=== PATIENT | female | born 1940 | race Two or more races ===

== ENCOUNTER 2017-10-27 15:32 | Emergency (ER) | payer SELFPAY ==
[~2017-10-27] VITALS: Ht 160 cm; Wt 52.8 kg
[2017-10-27 17:40] LABS: Basophils # (auto) 0 uL; Basophils % (auto) 0.3 % (0.0-2.0); Eosinophils # (auto) 0.1 uL; Eosinophils % (auto) 1.6 % (0.0-7.0); Hematocrit 45.1 % (36.0-46.0); Hemoglobin 15.2 g/dL (12.2-16.2); Lymphocytes # (auto) 1.9 uL; Lymphocytes % (auto) 25.4 % (10.0-50.0); Mean Corpuscular Hemoglobin 30.2 pg (28.0-32.0); Mean Corpuscular Hgb Conc. 33.6 g/dL (32.0-36.0); Mean Corpuscular Volume 89.7 fL (80.0-100.0); Monocytes # (auto) 0.5 uL; Neutrophils # (auto) 5.1 uL; Neutrophils % (auto) 66.7 % (37.0-80.0); Platelet Count (auto) 307 10^3/uL (140-450); Red Blood Cells 5.03 10^6/uL (4.0-5.20); Red Cell Distribution Width 14.4 % (11.8-14.3); White Blood Cell 7.6 10^3/uL (4.4-10.8)
[2017-10-27 17:53] LABS: Alcohol, Urine < 3.0 mg/dL (0-5); Amphetamine Screen, Urine NEGATIVE (NEGATIVE); Barbiturate Scree,Urine NEGATIVE (NEGATIVE); Benzodiazephine Screen, Urine POSITIVE (NEGATIVE); Cannabinoid Screen, Urine NEGATIVE (NEGATIVE); Cocaine Screen, Urine NEGATIVE (NEGATIVE); Opiate Scree,Urine NEGATIVE (NEGATIVE); Phencyclidine Screen, Urine NEGATIVE (NEGATIVE)
[2017-10-27 17:54] LABS: Anion Gap 10 (5-15); BUN/Creatinine Ratio 13.6; Blood Alcohol < 3.0 mg/dL (0-5); Blood Urea Nitrogen 12 mg/dL (7-18); Calcium 9.4 mg/dL (8.5-10.1); Carbon Dioxide 27 mmol/L (21-32); Chloride 104 mmol/L (98-107); GFR African American 80 mL/min; GFR Non-African American 66 mL/min; Glucose 158 mg/dL (74-106); Potassium 3.7 mmol/L (3.5-5.1); Sodium 141 mmol/L (136-145)
[2017-10-27 18:10] VITALS: BP 120/68
== END 2017-10-27 18:18 | disposition home or self-care (01) ==
LOC: ER 15:32
DX: F32.9 Major depressive disorder, single episode, unspecified (principal); E78.5 Hyperlipidemia, unspecified; I10 Essential (primary) hypertension; F17.210 Nicotine dependence, cigarettes, uncomplicated; Z90.710 Acquired absence of both cervix and uterus
CPT/HCPCS: 36415; 80048; 80307; 80320; 85025

== ENCOUNTER 2018-06-12 06:05 | Day surgery (SDC) | payer SELFPAY ==
[~2018-06-12] VITALS: Ht 162.6 cm; Wt 68.0 kg
[2018-06-12] MEDS ORDERED: SODIUM CHLORIDE 0.9% 1,000 ML IV ONE (07:37)
[2018-06-12 08:09] LABS: Basophils # (auto) 0 uL; Basophils % (auto) 0.4 % (0.0-2.0); Eosinophils # (auto) 0.2 uL; Eosinophils % (auto) 2.5 % (0.0-7.0); Hematocrit 43.2 % (36.0-46.0); Hemoglobin 14.2 g/dL (12.2-16.2); Lymphocytes # (auto) 2.2 uL; Lymphocytes % (auto) 23.2 % (10.0-50.0); Mean Corpuscular Hemoglobin 28.6 pg (28.0-32.0); Mean Corpuscular Hgb Conc. 32.8 g/dL (32.0-36.0); Mean Corpuscular Volume 87.1 fL (80.0-100.0); Monocytes # (auto) 0.5 uL; Monocytes % (auto) 5.9 % (0.0-12.0); Neutrophils # (auto) 6.3 uL; Nucleated Red Blood Cells % 0.1 %; Platelet Count (auto) 357 10^3/uL (140-450); Red Blood Cells 4.96 10^6/uL (4.0-5.20); Red Cell Distribution Width 14.7 % (11.8-14.3); White Blood Cell 9.3 10^3/uL (4.4-10.8)
[2018-06-12 08:26] LABS: INR 0.92 (0.9-1.15); Partial Thromboplastin Time 28.5 sec (23.78-33.04); Prothrombin Time 9.9 sec (9.27-12.13)
[2018-06-12 08:31] LABS: Albumin 4.1 g/dL (3.4-5.0); Anion Gap 6 (5-15); Blood Urea Nitrogen 13 mg/dL (7-18); Calcium 9.5 mg/dL (8.5-10.1); Carbon Dioxide 29 mmol/L (21-32); Chloride 106 mmol/L (98-107); Glucose 91 mg/dL (74-106); Potassium 3.9 mmol/L (3.5-5.1); Sodium 141 mmol/L (136-145)
[2018-06-12 08:33] LABS: Alanine Aminotransferase 18 U/L (13-56); Aspartate Aminotransferase 21 U/L (15-37); BUN/Creatinine Ratio 15.3; GFR African American 83 mL/min; GFR Non-African American 69 mL/min
[2018-06-12 08:38] LABS: Alkaline Phosphatase 98 U/L (45-117); Bilirubin, Total 0.3 mg/dL (0.2-1.0)
[2018-06-12] MEDS ORDERED: MEPERIDINE HCL (25 MG/ML) 1ML VIAL IM ONE (12:30)
[2018-06-12] MEDS ORDERED: LIDOCAINE HCL 2 % INJ 2ML MPF NEB ONE (12:30)
[2018-06-12] MEDS ORDERED: SODIUM CHLORIDE LOCK 30 ML ONE (12:40)
[2018-06-12] MEDS ORDERED: LIDOCAINE 2%HCL (LOCAL ANESTH.) INJ 20ML MDV ONE (12:42)
[2018-06-12] MEDS ORDERED: FLUMAZENIL 0.1 MG/ML INJ 10ML MDV IV ONE (12:42)
[2018-06-12] MEDS ORDERED: NALOXONE HCL 0.4 MG/ML VIAL ONE (12:42)
[2018-06-12] MEDS ORDERED: fentaNYL CITRATE 100 MCG/2 ML VL ONE (12:43)
[2018-06-12] MEDS ORDERED: LIDOCAINE HCL 2% TOP JELLY 5ML TOP ONE (12:43)
[2018-06-12] MEDS ORDERED: EPINEPHrine HCL 1 MG/1 ML AMP ONE (12:43)
[2018-06-12] MEDS: MIDAZOLAM HCL 5 MG/ML-1ML VIAL ONE ×5 (13:22→13:39)
[2018-06-12 16:21] VITALS: BP 136/72
== END 2018-06-12 16:32 | disposition home or self-care (01) ==
LOC: ER 06:05 → SUR 13:12
PROVIDERS: ATTEND Internal Medicine Pulmonary Disease
DX: R05 Cough (principal); Z98.890 Other specified postprocedural states
CPT/HCPCS: 36415; 36600; 71045; 80053; 82805; 83880; 84484; 85025; 85610; 85730; 86850; 86900; 86901; 88104; 88305; 94640; J0171; J2175; J2250; J2310; J7030; 31625

== ENCOUNTER 2018-08-05 11:33 | Emergency (ER) | payer SELFPAY ==
[~2018-08-05] VITALS: Ht 162.6 cm; Wt 51.3 kg
[2018-08-05 11:56] VITALS: BP 131/52
== END 2018-08-05 14:11 | disposition home or self-care (01) ==
LOC: ER 11:33
DX: C80.0 Disseminated malignant neoplasm, unspecified (principal); R10.84 Generalized abdominal pain

== ENCOUNTER 2018-12-08 08:54 | Emergency (ER) | payer SELFPAY ==
[~2018-12-08] VITALS: Ht 152.4 cm; Wt 43.1 kg
[2018-12-08 09:46] VITALS: BP 142/58
== END 2018-12-08 11:26 | disposition home or self-care (01) ==
LOC: ER 08:57
DX: S09.90XA Unspecified injury of head, initial encounter (principal); E78.5 Hyperlipidemia, unspecified; I10 Essential (primary) hypertension; V43.62XA Car passenger injured in collision with other type car in traffic accident, initial encounter; Y93.89 Activity, other specified; Y99.8 Other external cause status; Y92.410 Unspecified street and highway as the place of occurrence of the external cause
CPT/HCPCS: 70450; 72125

== ENCOUNTER → 2019-01-01 | Outpatient (CLI) | payer SELFPAY ==
[2019-01-01 08:34] LABS: Albumin 3.4 g/dL (3.4-5.0); Anion Gap 7 (5-15); BUN/Creatinine Ratio 18.2; Blood Urea Nitrogen 12 mg/dL (7-18); Calcium 8.7 mg/dL (8.5-10.1); Carbon Dioxide 26 mmol/L (21-32); Chloride 105 mmol/L (98-107); GFR African American 112 mL/min; GFR Non-African American 92 mL/min; Glucose 109 mg/dL (74-106); Potassium 3.9 mmol/L (3.5-5.1); Sodium 138 mmol/L (136-145)
[2019-01-01 08:38] LABS: Alanine Aminotransferase 18 U/L (13-56); Alkaline Phosphatase 128 U/L (45-117); Aspartate Aminotransferase 23 U/L (15-37); Bilirubin, Total 0.4 mg/dL (0.2-1.0); Total Protein 6.9 g/dL (6.4-8.2)
== END | disposition home or self-care (01) ==
LOC: LAB 08:04
DX: C34.11 Malignant neoplasm of upper lobe, right bronchus or lung (principal)
CPT/HCPCS: 36415; 80053

== ENCOUNTER 2019-06-11 21:37 | Inpatient (IN) | payer BC ==
[~2019-06-11] VITALS: Ht 162.6 cm; Wt 49.4 kg
[2019-06-11 22:58] LABS: Basophils # (auto) 0 10 ^3/uL (0-0.2); Basophils % (auto) 0.2 % (0.0-2.0); Eosinophils # (auto) 0 10 ^3/uL (0-0.8); Eosinophils % (auto) 0.2 % (0.0-7.0); Hematocrit 38.6 % (36.0-46.0); Lymphocytes # (auto) 0.7 10 ^3/uL (0.4-5.4); Lymphocytes % (auto) 8.1 % (10.0-50.0); Mean Corpuscular Hemoglobin 32.3 pg (28.0-32.0); Mean Corpuscular Hgb Conc. 33.7 g/dL (32.0-36.0); Mean Corpuscular Volume 95.9 fL (80.0-100.0); Monocytes # (auto) 0.7 10 ^3/uL (0-1.3); Monocytes % (auto) 7.5 % (0.0-12.0); Neutrophils # (auto) 7.7 10 ^3/uL (1.6-8.6); Platelet Count (auto) 179 10^3/uL (140-450); Red Blood Cells 4.03 10^6/uL (4.0-5.20); Red Cell Distribution Width 13.8 % (11.8-14.3); White Blood Cell 9.2 10^3/uL (4.4-10.8)
[2019-06-11 23:11] LABS: Albumin 3.8 g/dL (3.4-5.0); Anion Gap 7 (5-15); Blood Urea Nitrogen 16 mg/dL (7-18); Calcium 9.2 mg/dL (8.5-10.1); Carbon Dioxide 27 mmol/L (21-32); Chloride 105 mmol/L (98-107); Glucose 107 mg/dL (74-106); Potassium 3.3 mmol/L (3.5-5.1); Sodium 139 mmol/L (136-145)
[2019-06-11 23:13] LABS: Alanine Aminotransferase 21 U/L (13-56); Aspartate Aminotransferase 31 U/L (15-37); BUN/Creatinine Ratio 25.4; GFR African American 118 mL/min; GFR Non-African American 97 mL/min
[2019-06-11 23:18] LABS: Alkaline Phosphatase 85 U/L (45-117); Bilirubin, Total 0.6 mg/dL (0.2-1.0); Total Protein 7.6 g/dL (6.4-8.2)
[2019-06-12 04:19] LABS: Urine Amorphous Crystal FEW /hpf (None Seen); Urine Bacteria FEW /hpf (None Seen); Urine Blood Negative /uL (Negative); Urine Hyaline Cast FEW /lpf (0 - 2); Urine Mucus FEW (None Seen); Urine Specific Gravity 1.022 (1.001-1.035); Urine WBC 2 /hpf (0 - 5)
[2019-06-12] MEDS ORDERED: AZITHROMYCIN 500MG/ 250ML 250 ML IV ONE (05:00)
[2019-06-12] MEDS ORDERED: cefTRIAXone 1GM/50ML D5W 50 ML IV ONE (05:00)
[2019-06-12] MEDS ORDERED: ACETAMINOPHEN 325 MG TAB PO PRN ×2 (07:00→15:45)
[2019-06-12] MEDS ORDERED: HYDROcodone-ACET 5/325MG TAB PO PRN (07:00)
[2019-06-12] MEDS ORDERED: ONDANSETRON HCL 4 MG/2 ML VIAL IV PRN (07:00)
[2019-06-12] MEDS ORDERED: ALBUTEROL SULF 2.5 MG/0.5ML(0.5%) NEB SOLN NEB PRN (07:00)
[2019-06-12] MEDS: amLODIPine BESYLATE 5 MG TAB PO SCH (10:00)
[2019-06-12 10:30] VITALS: BP 116/72
[2019-06-12] MEDS: ALBUTEROL SULF HFA 90MCG INH 200DOSE IN SCH ×3 (10:30→22:14)
[2019-06-12] MEDS ORDERED: POTASSIUM CHL 20 Meq TABLET PO ONE ×2 (10:30→15:00)
[2019-06-12] MEDS ORDERED: ACETAMINOPHEN 500 MG TAB PO PRN (10:30)
[2019-06-12 11:08] LABS: Basophils # (auto) 0 10 ^3/uL (0-0.2); Eosinophils # (auto) 0 10 ^3/uL (0-0.8); Hematocrit 39.7 % (36.0-46.0); Hemoglobin 13.5 g/dL (12.2-16.2); Lymphocytes # (auto) 0.7 10 ^3/uL (0.4-5.4); Lymphocytes % (auto) 5.2 % (10.0-50.0); Mean Corpuscular Hemoglobin 32.2 pg (28.0-32.0); Mean Corpuscular Hgb Conc. 33.9 g/dL (32.0-36.0); Monocytes # (auto) 0.5 10 ^3/uL (0-1.3); Monocytes % (auto) 4.3 % (0.0-12.0); Neutrophils # (auto) 11.3 10 ^3/uL (1.6-8.6); Neutrophils % (auto) 90.5 % (37.0-80.0); Platelet Count (auto) 161 10^3/uL (140-450); Red Blood Cells 4.18 10^6/uL (4.0-5.20); White Blood Cell 12.5 10^3/uL (4.4-10.8)
[2019-06-12] MEDS: FAMOTIDINE 20 MG TAB PO SCH (11:12)
[2019-06-12] MEDS: ENOXAPARIN SOD 40 MG/0.4 ML SYRINGE SC SCH (11:13)
[2019-06-12 11:33] LABS: Albumin 3.6 g/dL (3.4-5.0); Calcium 9.1 mg/dL (8.5-10.1); Magnesium 1.9 mg/dL (1.6-2.6); Potassium 3.3 mmol/L (3.5-5.1)
[2019-06-12 11:41] LABS: BUN/Creatinine Ratio 34.9; Bilirubin, Total 0.7 mg/dL (0.2-1.0); CRP High Sensitivity 6.59 mg/dL (< 0.3); Total Protein 7.1 g/dL (6.4-8.2)
[2019-06-12] MEDS ORDERED: LACT10SO3 PO (12:02)
[2019-06-12] MEDS ORDERED: LIDO1KIT21 EX (12:02)
[2019-06-12] MEDS ORDERED: NIC21P TOP (12:02)
[2019-06-12] MEDS ORDERED: MIRT1TAB38 PO (12:02)
[2019-06-12] MEDS ORDERED: MORP30TA5 PO (12:02)
[2019-06-12] MEDS ORDERED: ONDA-143 PO (12:02)
[2019-06-12] MEDS ORDERED: NICO1LOZ5 MT (12:02)
[2019-06-12] MEDS ORDERED: ALPR0.254 PO (12:02)
[2019-06-12] MEDS ORDERED: ALBU108A5 IN (12:02)
[2019-06-12] MEDS ORDERED: AMLO5TAB15 PO (12:02)
[2019-06-12] MEDS ORDERED: PRO10T PO (12:02)
[2019-06-12] MEDS ORDERED: ALBUTEROL SULF 2.5 MG/0.5ML(0.5%) NEB SOLN NEB SCH (14:00)
[2019-06-12 14:27] VITALS: BP 125/52
[2019-06-12] MEDS ORDERED: MAGNESIUM OXIDE 400 MG TAB PO ONE (15:00)
[2019-06-12] MEDS: SODIUM CHLORIDE 0.9% 1,000 ML IV SCH (15:27)
[2019-06-12] MEDS: ZINC SULFATE 220mg CAP or TAB PO SCH (15:27)
[2019-06-12] MEDS: CHOLECALCIFEROL (VITD3) 1,000IU=25mCg TAB PO SCH (15:28)
[2019-06-12] MEDS: ASCORBIC ACID 500 MG TAB PO SCH (15:28)
[2019-06-12 17:00] VITALS: BP 130/75
[2019-06-12 22:25] VITALS: BP 141/70
[2019-06-12] MEDS: TEMAZEPAM 15 MG CAP PO PRN (23:17)
[2019-06-13] MEDS: SODIUM CHLORIDE 0.9% 1,000 ML IV SCH ×2 (00:39→15:20)
[2019-06-13 04:53] VITALS: BP 138/72
[2019-06-13 06:00] VITALS: BP 110/50
[2019-06-13] MEDS: ALBUTEROL SULF HFA 90MCG INH 200DOSE IN SCH ×3 (07:06→22:49)
[2019-06-13 07:10] LABS: Urine Bacteria NONE SEEN /hpf (None Seen); Urine Blood Negative /uL (Negative); Urine Mucus FEW (None Seen); Urine Specific Gravity 1.014 (1.001-1.035); Urine WBC 7 /hpf (0 - 5)
[2019-06-13 07:20] LABS: Basophils # (auto) 0 10 ^3/uL (0-0.2); Eosinophils # (auto) 0 10 ^3/uL (0-0.8); Hematocrit 37.8 % (36.0-46.0); Hemoglobin 12.5 g/dL (12.2-16.2); Lymphocytes # (auto) 0.6 10 ^3/uL (0.4-5.4); Lymphocytes % (auto) 6.6 % (10.0-50.0); Mean Corpuscular Hemoglobin 31.4 pg (28.0-32.0); Mean Corpuscular Volume 95.1 fL (80.0-100.0); Monocytes # (auto) 0.6 10 ^3/uL (0-1.3); Monocytes % (auto) 6.7 % (0.0-12.0); Neutrophils # (auto) 7.7 10 ^3/uL (1.6-8.6); Neutrophils % (auto) 86.7 % (37.0-80.0); Platelet Count (auto) 148 10^3/uL (140-450); Red Blood Cells 3.97 10^6/uL (4.0-5.20); Red Cell Distribution Width 13.9 % (11.8-14.3); White Blood Cell 8.8 10^3/uL (4.4-10.8)
[2019-06-13 07:43] LABS: Albumin 3.1 g/dL (3.4-5.0); BUN/Creatinine Ratio 25.6; Calcium 8.9 mg/dL (8.5-10.1); Potassium 3.6 mmol/L (3.5-5.1)
[2019-06-13 07:45] LABS: Bilirubin, Total 0.6 mg/dL (0.2-1.0); Total Protein 6.8 g/dL (6.4-8.2)
[2019-06-13 08:00] VITALS: BP 148/82
[2019-06-13] MEDS ORDERED: cefTRIAXone 1GM/50ML D5W 50 ML IV SCH (09:00)
[2019-06-13] MEDS: FAMOTIDINE 20 MG TAB PO SCH (10:20)
[2019-06-13] MEDS: ZINC SULFATE 220mg CAP or TAB PO SCH (10:20)
[2019-06-13] MEDS: CHOLECALCIFEROL (VITD3) 1,000IU=25mCg TAB PO SCH (10:20)
[2019-06-13] MEDS: AZITHROMYCIN 500MG/ 250ML 250 ML IV SCH (10:20)
[2019-06-13] MEDS: ENOXAPARIN SOD 40 MG/0.4 ML SYRINGE SC SCH (10:21)
[2019-06-13] MEDS: ASCORBIC ACID 500 MG TAB PO SCH (10:22)
[2019-06-13] MEDS: amLODIPine BESYLATE 5 MG TAB PO SCH (10:22)
[2019-06-13 12:00] VITALS: BP 144/78
[2019-06-13 16:30] VITALS: BP 126/74
[2019-06-13 22:00] VITALS: BP 135/67
[2019-06-13] MEDS: TEMAZEPAM 15 MG CAP PO PRN (22:49)
[2019-06-14] MEDS: ALPRAZolam 0.25 MG TAB PO PRN (00:18)
[2019-06-14] MEDS: SODIUM CHLORIDE 0.9% 1,000 ML IV SCH ×2 (07:01→14:16)
[2019-06-14] MEDS: ALBUTEROL SULF HFA 90MCG INH 200DOSE IN SCH ×3 (07:01→21:05)
[2019-06-14 08:00] VITALS: BP 139/72
[2019-06-14 09:00] VITALS: BP 138/71
[2019-06-14] MEDS: AZITHROMYCIN 500MG/ 250ML 250 ML IV SCH (09:39)
[2019-06-14] MEDS: FAMOTIDINE 20 MG TAB PO SCH (09:39)
[2019-06-14] MEDS: ZINC SULFATE 220mg CAP or TAB PO SCH (09:39)
[2019-06-14] MEDS: ENOXAPARIN SOD 40 MG/0.4 ML SYRINGE SC SCH (09:40)
[2019-06-14] MEDS: ASCORBIC ACID 500 MG TAB PO SCH (09:40)
[2019-06-14] MEDS: CHOLECALCIFEROL (VITD3) 1,000IU=25mCg TAB PO SCH (09:40)
[2019-06-14] MEDS: amLODIPine BESYLATE 5 MG TAB PO SCH (09:40)
[2019-06-14 13:00] VITALS: BP 128/68
[2019-06-14 13:25] LABS: Basophils # (auto) 0 10 ^3/uL (0-0.2); Basophils % (auto) 0.1 % (0.0-2.0); Eosinophils # (auto) 0 10 ^3/uL (0-0.8); Eosinophils % (auto) 0.4 % (0.0-7.0); Hematocrit 39.2 % (36.0-46.0); Hemoglobin 13.6 g/dL (12.2-16.2); Lymphocytes # (auto) 0.5 10 ^3/uL (0.4-5.4); Lymphocytes % (auto) 13.9 % (10.0-50.0); Mean Corpuscular Hemoglobin 32.2 pg (28.0-32.0); Mean Corpuscular Hgb Conc. 34.6 g/dL (32.0-36.0); Monocytes # (auto) 0.4 10 ^3/uL (0-1.3); Monocytes % (auto) 11.1 % (0.0-12.0); Neutrophils # (auto) 2.8 10 ^3/uL (1.6-8.6); Neutrophils % (auto) 74.5 % (37.0-80.0); Nucleated Red Blood Cells % 0.1 %; Platelet Count (auto) 177 10^3/uL (140-450); Red Blood Cells 4.22 10^6/uL (4.0-5.20); Red Cell Distribution Width 13.6 % (11.8-14.3); White Blood Cell 3.8 10^3/uL (4.4-10.8)
[2019-06-14 13:44] LABS: Albumin 3.6 g/dL (3.4-5.0); Calcium 9.4 mg/dL (8.5-10.1); Magnesium 1.9 mg/dL (1.6-2.6); Potassium 3.2 mmol/L (3.5-5.1)
[2019-06-14 13:47] LABS: BUN/Creatinine Ratio 18.4; Bilirubin, Total 0.5 mg/dL (0.2-1.0); Phosphorus 2.8 mg/dL (2.5-4.90); Total Protein 7.6 g/dL (6.4-8.2)
[2019-06-14 13:48] LABS: INR 0.98 (0.9-1.15)
[2019-06-14 17:00] VITALS: BP 133/64
[2019-06-14] MEDS ORDERED: POTASSIUM CHL 20 Meq TABLET PO ONE (19:15)
[2019-06-14] MEDS ORDERED: POTASSIUM CHL 20MEQ/100ML 100 ML IV ONE (19:15)
[2019-06-14] MEDS ORDERED: LORazepam 2MG/ML-1ML VIAL IV PRN (21:45)
[2019-06-14 22:00] VITALS: BP 130/75
[2019-06-15] VITALS (7 sets, daily range): BP systolic 111–150; BP diastolic 66–75
[2019-06-15] MEDS: ALBUTEROL SULF HFA 90MCG INH 200DOSE IN SCH ×3 (06:02→21:31)
[2019-06-15 07:11] LABS: Basophils # (auto) 0 10 ^3/uL (0-0.2); Basophils % (auto) 0.4 % (0.0-2.0); Eosinophils # (auto) 0.1 10 ^3/uL (0-0.8); Eosinophils % (auto) 1.3 % (0.0-7.0); Hematocrit 41.5 % (36.0-46.0); Hemoglobin 14.1 g/dL (12.2-16.2); Lymphocytes # (auto) 0.7 10 ^3/uL (0.4-5.4); Lymphocytes % (auto) 17.4 % (10.0-50.0); Mean Corpuscular Hemoglobin 31.5 pg (28.0-32.0); Mean Corpuscular Hgb Conc. 33.9 g/dL (32.0-36.0); Monocytes # (auto) 0.5 10 ^3/uL (0-1.3); Monocytes % (auto) 12.5 % (0.0-12.0); Neutrophils # (auto) 2.9 10 ^3/uL (1.6-8.6); Neutrophils % (auto) 68.4 % (37.0-80.0); Nucleated Red Blood Cells % 0.4 %; Platelet Count (auto) 196 10^3/uL (140-450); Red Blood Cells 4.46 10^6/uL (4.0-5.20); Red Cell Distribution Width 13.4 % (11.8-14.3); White Blood Cell 4.3 10^3/uL (4.4-10.8)
[2019-06-15 07:49] LABS: Potassium 3.5 mmol/L (3.5-5.1)
[2019-06-15 07:56] LABS: Albumin 3.7 g/dL (3.4-5.0); BUN/Creatinine Ratio 18.6; Bilirubin, Total 0.5 mg/dL (0.2-1.0); Calcium 9.8 mg/dL (8.5-10.1); Phosphorus 2.4 mg/dL (2.5-4.90); Total Protein 7.9 g/dL (6.4-8.2)
[2019-06-15] MEDS ORDERED: GADOTERIDOL 279.3mg/mL 20ml Vial IV ONE (09:34)
[2019-06-15] MEDS: POTASSIUM CHL 20 Meq TABLET PO SCH (11:06)
[2019-06-15] MEDS: ASCORBIC ACID 500 MG TAB PO SCH (11:07)
[2019-06-15] MEDS: ENOXAPARIN SOD 40 MG/0.4 ML SYRINGE SC SCH (11:08)
[2019-06-15] MEDS: CHOLECALCIFEROL (VITD3) 1,000IU=25mCg TAB PO SCH (11:08)
[2019-06-15] MEDS: amLODIPine BESYLATE 5 MG TAB PO SCH (11:09)
[2019-06-15] MEDS: FAMOTIDINE 20 MG TAB PO SCH (11:15)
[2019-06-15] MEDS ORDERED: DexAMETHasone SOD PHOS 4 MG/1ML SDV INJ IV SCH (22:00)
[2019-06-16 05:00] VITALS: BP 149/85
[2019-06-16 05:21] VITALS: BP 142/79
[2019-06-16 06:21] LABS: Basophils # (auto) 0 10 ^3/uL (0-0.2); Eosinophils # (auto) 0 10 ^3/uL (0-0.8); Eosinophils % (auto) 0.1 % (0.0-7.0); Hematocrit 45.6 % (36.0-46.0); Hemoglobin 15.4 g/dL (12.2-16.2); Lymphocytes # (auto) 0.4 10 ^3/uL (0.4-5.4); Lymphocytes % (auto) 10.5 % (10.0-50.0); Mean Corpuscular Hemoglobin 31.4 pg (28.0-32.0); Mean Corpuscular Hgb Conc. 33.9 g/dL (32.0-36.0); Mean Corpuscular Volume 92.7 fL (80.0-100.0); Monocytes # (auto) 0.1 10 ^3/uL (0-1.3); Monocytes % (auto) 3.4 % (0.0-12.0); Neutrophils # (auto) 3.7 10 ^3/uL (1.6-8.6); Nucleated Red Blood Cells % 0.3 %; Platelet Count (auto) 215 10^3/uL (140-450); Red Blood Cells 4.91 10^6/uL (4.0-5.20); White Blood Cell 4.3 10^3/uL (4.4-10.8)
[2019-06-16] MEDS: ALBUTEROL SULF HFA 90MCG INH 200DOSE IN SCH ×3 (06:27→21:36)
[2019-06-16 06:39] LABS: Potassium 3.9 mmol/L (3.5-5.1)
[2019-06-16 06:46] LABS: BUN/Creatinine Ratio 20.3; Bilirubin, Total 0.4 mg/dL (0.2-1.0); Calcium 10.3 mg/dL (8.5-10.1); Total Protein 8.6 g/dL (6.4-8.2)
[2019-06-16 08:00] VITALS: BP 139/84
[2019-06-16 09:00] VITALS: BP 139/84
[2019-06-16] MEDS: DexAMETHasone 4 MG TAB PO SCH ×2 (10:15→22:03)
[2019-06-16] MEDS: POTASSIUM CHL 20 Meq TABLET PO SCH (10:16)
[2019-06-16] MEDS: amLODIPine BESYLATE 5 MG TAB PO SCH (10:17)
[2019-06-16] MEDS: ASCORBIC ACID 500 MG TAB PO SCH (10:17)
[2019-06-16] MEDS: FAMOTIDINE 20 MG TAB PO SCH (10:17)
[2019-06-16] MEDS: CHOLECALCIFEROL (VITD3) 1,000IU=25mCg TAB PO SCH (10:18)
[2019-06-16] MEDS: ENOXAPARIN SOD 40 MG/0.4 ML SYRINGE SC SCH (10:19)
[2019-06-16 16:48] VITALS: BP 138/74
[2019-06-16] MEDS: ALPRAZolam 0.25 MG TAB PO PRN (20:00)
[2019-06-16] MEDS ORDERED: MIRTAZAPINE 30 MG TAB PO PRN (21:30)
[2019-06-17] VITALS (7 sets, daily range): BP systolic 132–149; BP diastolic 84–88
[2019-06-17] MEDS: ALBUTEROL SULF HFA 90MCG INH 200DOSE IN SCH (06:00)
[2019-06-17] MEDS ORDERED: BUDESONIDE (INHALATION) 0.5 MG/2 ML NEB ONE (09:55)
[2019-06-17] MEDS: CHOLECALCIFEROL (VITD3) 1,000IU=25mCg TAB PO SCH (10:00)
[2019-06-17] MEDS: DexAMETHasone 4 MG TAB PO SCH (10:58)
[2019-06-17] MEDS: POTASSIUM CHL 20 Meq TABLET PO SCH (10:58)
[2019-06-17] MEDS: FAMOTIDINE 20 MG TAB PO SCH (10:58)
[2019-06-17] MEDS: amLODIPine BESYLATE 5 MG TAB PO SCH (10:59)
[2019-06-17] MEDS: ASCORBIC ACID 500 MG TAB PO SCH (10:59)
[2019-06-17] MEDS: ENOXAPARIN SOD 40 MG/0.4 ML SYRINGE SC SCH (11:00)
== END 2019-06-17 18:20 | disposition home or self-care (01) | DRG 871 ==
LOC: ER 21:39 → OVERFLOW 21:40 → CENTRAL 06-12 09:41 → TELE-WESTW 06-12 15:12
PROVIDERS: ADMIT Nurse Practitioner; ATTEND Internal Medicine
DX: A41.9 Sepsis, unspecified organism (principal); J18.9 Pneumonia, unspecified organism; G93.41 Metabolic encephalopathy; J96.01 Acute respiratory failure with hypoxia; C79.31 Secondary malignant neoplasm of brain; C34.90 Malignant neoplasm of unspecified part of unspecified bronchus or lung; G93.1 Anoxic brain damage, not elsewhere classified; E78.00 Pure hypercholesterolemia, unspecified; I10 Essential (primary) hypertension; Z82.0 Family history of epilepsy and other diseases of the nervous system; E78.5 Hyperlipidemia, unspecified; G30.9 Alzheimer's disease, unspecified; F02.80 Dementia in other diseases classified elsewhere, unspecified severity, without behavioral disturbance, psychotic disturbance, mood disturbance, and anxiety; E87.6 Hypokalemia; Z03.818 Encounter for observation for suspected exposure to other biological agents ruled out; Z85.118 Personal history of other malignant neoplasm of bronchus and lung; Z90.710 Acquired absence of both cervix and uterus
CPT/HCPCS: 36415; 36600; 70450; 70553; 71045; 80053; 81001; 82140; 82728; 82805; 83605; 83615; 83735; 83880; 84100; 84443; 84484; 85025; 85379; 85610; 85730; 86141; 87040; 87070; 87493; 87804; 87880; 93005; 94640; 95819; 96365; 96366; 96367; 97116; 97163; 97530; G0378; J0696; J1100; J3480

== ENCOUNTER 2019-06-29 13:35 | Inpatient (IN) | payer BC, SELFPAY ==
[~2019-06-29] VITALS: Ht 162.6 cm; Wt 47.7 kg
[~2019-06-29 13:35] MED LIST: ALBU108A5 IN; ALPR0.254 PO; AMLO5TAB15 PO; LACT10SO3 PO; LIDO1KIT21 EX; MIRT1TAB38 PO; MORP30TA5 PO; NIC21P TOP; NICO1LOZ5 MT; ONDA-143 PO; PRO10T PO
[2019-06-29] MEDS ORDERED: FLEET ENEMA(ADULT) 135 ML PR ONE (14:15)
[2019-06-29 14:37] LABS: Basophils # (auto) 0 10 ^3/uL (0-0.2); Basophils % (auto) 0.3 % (0.0-2.0); Eosinophils # (auto) 0 10 ^3/uL (0-0.8); Eosinophils % (auto) 0.8 % (0.0-7.0); Hematocrit 35.6 % (36.0-46.0); Hemoglobin 11.8 g/dL (12.2-16.2); Lymphocytes # (auto) 0.9 10 ^3/uL (0.4-5.4); Lymphocytes % (auto) 14.5 % (10.0-50.0); Mean Corpuscular Hemoglobin 30.6 pg (28.0-32.0); Mean Corpuscular Hgb Conc. 33.2 g/dL (32.0-36.0); Monocytes # (auto) 0.5 10 ^3/uL (0-1.3); Monocytes % (auto) 8.2 % (0.0-12.0); Neutrophils # (auto) 4.5 10 ^3/uL (1.6-8.6); Neutrophils % (auto) 76.2 % (37.0-80.0); Nucleated Red Blood Cells % 0.1 %; Platelet Count (auto) 231 10^3/uL (140-450); Red Blood Cells 3.87 10^6/uL (4.0-5.20); Red Cell Distribution Width 13.8 % (11.8-14.3)
[2019-06-29 14:53] LABS: Alanine Aminotransferase 22 U/L (13-56); Albumin 3.2 g/dL (3.4-5.0); Anion Gap 7 (5-15); Aspartate Aminotransferase 26 U/L (15-37); BUN/Creatinine Ratio 28.8; Blood Urea Nitrogen 15 mg/dL (7-18); Calcium 8.8 mg/dL (8.5-10.1); Carbon Dioxide 29 mmol/L (21-32); Chloride 104 mmol/L (98-107); GFR African American 147 mL/min; GFR Non-African American 121 mL/min; Glucose 106 mg/dL (74-106); Potassium 3.5 mmol/L (3.5-5.1); Sodium 140 mmol/L (136-145)
[2019-06-29 14:58] LABS: Alkaline Phosphatase 75 U/L (45-117); Bilirubin, Total 0.2 mg/dL (0.2-1.0); Total Protein 6.8 g/dL (6.4-8.2)
[2019-06-29 15:11] LABS: Urine Bacteria NONE SEEN /hpf (None Seen); Urine Blood Negative /uL (Negative); Urine Specific Gravity 1.015 (1.001-1.035); Urine WBC 16 /hpf (0 - 5)
[2019-06-29] MEDS ORDERED: NITROGLYCERIN 0.4 MG SL TAB SL PRN ×2 (15:30→16:30)
[2019-06-29] MEDS ORDERED: MORPHINE SULF INJ 2 MG/ML SYRINGE 1ML IV PRN (15:30)
[2019-06-29] MEDS ORDERED: GASTROGRAFIN 120 ML SOL ONE (15:54)
[2019-06-29] MEDS ORDERED: HYDROcodone-ACET 5/325MG TAB PO PRN (16:30)
[2019-06-29] MEDS ORDERED: ALBUTEROL SULF HFA 90MCG INH 200DOSE IN PRN (16:30)
[2019-06-29] MEDS ORDERED: DEXTROSE (50%) 50ML SYRG IV PRN (16:30)
[2019-06-29] MEDS ORDERED: ONDANSETRON HCL 4 MG/2 ML VIAL IV PRN (16:30)
[2019-06-29] MEDS ORDERED: LACTULOSE 20Gm/30ML SOLN PO PRN (16:30)
[2019-06-29] MEDS ORDERED: ALUM & MAG HYDROX-SIMETH LIQ(MAALOX) 30 ML PO ONE (16:30)
[2019-06-29 16:37] VITALS: BP 119/66
[2019-06-29] MEDS ORDERED: ALBUTEROL SULF 2.5 MG/0.5ML(0.5%) NEB SOLN NEB PRN (17:30)
[2019-06-29] MEDS: InsuLIN REG 1unit/0.01ml Soln (100units/ml) SC SCH ×2 (17:33→21:32)
[2019-06-29] MEDS: ACCU-CHEK COMFORT CURVE STRIP VI SCH ×2 (17:33→21:32)
[2019-06-29] MEDS: SODIUM CHLORIDE 0.9% 1,000 ML IV SCH (17:33)
[2019-06-29] MEDS: cefTRIAXone 1GM/50ML D5W 50 ML IV SCH (17:33)
[2019-06-29] MEDS: PROCHLORPERAZINE MALEATE 10 MG TAB PO SCH (18:00)
[2019-06-29 18:37] VITALS: BP 125/68
[2019-06-29] MEDS: metroNIDAZOLE 500MG/100ML 100 ML IV SCH (21:28)
[2019-06-29] MEDS: DOCUSATE SOD 100 MG CAP PO SCH (21:30)
[2019-06-29 21:41] VITALS: BP 121/69
[2019-06-29] MEDS ORDERED: MIRTAZAPINE 30 MG TAB PO SCH (22:00)
[2019-06-29] MEDS ORDERED: ALPRAZolam 0.25 MG TAB PO SCH (22:00)
[2019-06-30] MEDS: PROCHLORPERAZINE MALEATE 10 MG TAB PO SCH ×3 (00:38→15:00)
[2019-06-30 05:15] VITALS: BP 132/70
[2019-06-30] MEDS: metroNIDAZOLE 500MG/100ML 100 ML IV SCH ×2 (05:25→15:00)
[2019-06-30] MEDS: SODIUM CHLORIDE 0.9% 1,000 ML IV SCH (05:25)
[2019-06-30] MEDS: InsuLIN REG 1unit/0.01ml Soln (100units/ml) SC SCH ×2 (06:21→11:30)
[2019-06-30] MEDS: ACCU-CHEK COMFORT CURVE STRIP VI SCH ×2 (06:21→12:58)
[2019-06-30 09:00] VITALS: BP 138/70
[2019-06-30] MEDS ORDERED: NICOTINE 21MG/24 HR TOPICAL PATCH TD SCH (10:00)
[2019-06-30] MEDS ORDERED: amLODIPine BESYLATE 5 MG TAB PO SCH (10:00)
[2019-06-30] MEDS ORDERED: ENOXAPARIN SOD 40 MG/0.4 ML SYRINGE SC SCH (10:00)
[2019-06-30] MEDS: cefTRIAXone 1GM/50ML D5W 50 ML IV SCH (10:07)
[2019-06-30] MEDS: DOCUSATE SOD 100 MG CAP PO SCH (10:08)
[2019-06-30 13:00] VITALS: BP 140/72
[2019-06-30 16:50] VITALS: BP 143/74
== END 2019-06-30 16:40 | disposition home or self-care (01) | DRG 392 ==
LOC: ER 13:35 → TELE 13:36 → TELE-CENTR 17:40
PROVIDERS: ADMIT Hospitalist; ATTEND Family Medicine
DX: K59.00 Constipation, unspecified (principal); N39.0 Urinary tract infection, site not specified; C34.90 Malignant neoplasm of unspecified part of unspecified bronchus or lung; C79.31 Secondary malignant neoplasm of brain; F03.90 Unspecified dementia, unspecified severity, without behavioral disturbance, psychotic disturbance, mood disturbance, and anxiety; E11.9 Type 2 diabetes mellitus without complications; G89.3 Neoplasm related pain (acute) (chronic); Z85.118 Personal history of other malignant neoplasm of bronchus and lung; F17.210 Nicotine dependence, cigarettes, uncomplicated; F32.9 Major depressive disorder, single episode, unspecified; I10 Essential (primary) hypertension; Z90.710 Acquired absence of both cervix and uterus; Z79.899 Other long term (current) drug therapy; Z79.84 Long term (current) use of oral hypoglycemic drugs
CPT/HCPCS: 36415; 70450; 74018; 74250; 80053; 81001; 82962; 84484; 85025; 93005; 96374; G0378; J0696; J1642; J3490; Q0164

== ENCOUNTER 2019-07-07 22:10 | Inpatient (IN) | payer BC ==
[~2019-07-07] VITALS: Ht 157.5 cm; Wt 45.0 kg
[2019-07-07 23:18] LABS: Basophils # (auto) 0 10 ^3/uL (0-0.2); Basophils % (auto) 0.3 % (0.0-2.0); Eosinophils # (auto) 0.1 10 ^3/uL (0-0.8); Eosinophils % (auto) 2.6 % (0.0-7.0); Hematocrit 37.7 % (36.0-46.0); Hemoglobin 12.3 g/dL (12.2-16.2); Lymphocytes # (auto) 0.9 10 ^3/uL (0.4-5.4); Lymphocytes % (auto) 22.1 % (10.0-50.0); Mean Corpuscular Hgb Conc. 32.7 g/dL (32.0-36.0); Mean Corpuscular Volume 91.9 fL (80.0-100.0); Monocytes # (auto) 0.4 10 ^3/uL (0-1.3); Monocytes % (auto) 10.3 % (0.0-12.0); Neutrophils # (auto) 2.8 10 ^3/uL (1.6-8.6); Neutrophils % (auto) 64.7 % (37.0-80.0); Nucleated Red Blood Cells % 0.1 %; Platelet Count (auto) 261 10^3/uL (140-450); Red Cell Distribution Width 13.5 % (11.8-14.3); White Blood Cell 4.3 10^3/uL (4.4-10.8)
[2019-07-07 23:34] LABS: INR 0.96 (0.9-1.15); Partial Thromboplastin Time 28.5 sec (23.64-32.05)
[2019-07-07 23:38] LABS: Alanine Aminotransferase 20 U/L (13-56); Albumin 3.1 g/dL (3.4-5.0); Anion Gap 5 (5-15); Aspartate Aminotransferase 32 U/L (15-37); BUN/Creatinine Ratio 22.4; Blood Urea Nitrogen 13 mg/dL (7-18); Calcium 9.3 mg/dL (8.5-10.1); Carbon Dioxide 33 mmol/L (21-32); Chloride 101 mmol/L (98-107); GFR African American 129 mL/min; GFR Non-African American 107 mL/min; Glucose 101 mg/dL (74-106); Potassium 3.7 mmol/L (3.5-5.1); Sodium 139 mmol/L (136-145)
[2019-07-07 23:42] LABS: Alkaline Phosphatase 78 U/L (45-117); Bilirubin, Total 0.3 mg/dL (0.2-1.0); Total Protein 7.1 g/dL (6.4-8.2)
[2019-07-08 01:02] LABS: Urine Bacteria NONE SEEN /hpf (None Seen); Urine Blood Negative /uL (Negative); Urine Budding Yeast OCCASIONAL /hpf (None Seen); Urine Mucus FEW (None Seen); Urine Specific Gravity 1.021 (1.001-1.035); Urine WBC 7 /hpf (0 - 5)
[2019-07-08] MEDS ORDERED: TEMAZEPAM 15 MG CAP PO PRN (05:00)
[2019-07-08] MEDS ORDERED: DOCUSATE SOD 100 MG CAP PO PRN (05:00)
[2019-07-08] MEDS ORDERED: MORPHINE SULF INJ 2 MG/ML SYRINGE 1ML IV PRN (05:00)
[2019-07-08] MEDS ORDERED: NITROGLYCERIN 0.4 MG SL TAB SL PRN (05:00)
[2019-07-08] MEDS ORDERED: ALBUTEROL SULF 2.5 MG/0.5ML(0.5%) NEB SOLN NEB PRN (05:00)
[2019-07-08] MEDS ORDERED: ONDANSETRON HCL 4 MG/2 ML VIAL IV PRN (05:00)
[2019-07-08] MEDS ORDERED: ACETAMINOPHEN 325 MG TAB PO PRN (05:00)
[2019-07-08] MEDS ORDERED: cefTRIAXone 1GM/50ML D5W 50 ML IV SCH ×2 (06:00→09:00)
[2019-07-08 08:35] VITALS: BP 151/75
[2019-07-08 08:58] VITALS: BP 151/75
[2019-07-08] MEDS ORDERED: OLAN2.5T25 PO (09:30)
[2019-07-08] MEDS ORDERED: amLODIPine BESYLATE 5 MG TAB PO SCH (10:00)
[2019-07-08] MEDS ORDERED: MORPHINE SULF 30 mg ER tab PO SCH (10:00)
[2019-07-08] MEDS ORDERED: FAMOTIDINE 20 MG TAB PO SCH (10:00)
[2019-07-08] MEDS ORDERED: ENOXAPARIN SOD 40 MG/0.4 ML SYRINGE SC SCH (10:00)
[2019-07-08] MEDS ORDERED: OLAN2.5T38 PO (11:14)
[2019-07-08] MEDS ORDERED: ASPI-231 PO (11:14)
[2019-07-08 11:31] VITALS: BP 151/75
[2019-07-08 13:00] VITALS: BP 135/72
[2019-07-08 16:34] VITALS: BP 115/62
[2019-07-08 18:07] VITALS: BP 151/73
== END 2019-07-08 20:15 | disposition hospice, home (50) | DRG 71 ==
LOC: EDBD 22:10 → ER 22:14 → OVERFLOW 22:15 → WEST WING 07-08 08:25
PROVIDERS: ADMIT Nurse Practitioner; ATTEND Family Medicine
DX: G93.41 Metabolic encephalopathy (principal); C79.31 Secondary malignant neoplasm of brain; N39.0 Urinary tract infection, site not specified; C34.90 Malignant neoplasm of unspecified part of unspecified bronchus or lung; R62.7 Adult failure to thrive; I10 Essential (primary) hypertension; E78.5 Hyperlipidemia, unspecified; F17.210 Nicotine dependence, cigarettes, uncomplicated; Z85.118 Personal history of other malignant neoplasm of bronchus and lung; Z90.710 Acquired absence of both cervix and uterus; Z51.5 Encounter for palliative care
CPT/HCPCS: 36415; 70450; 71045; 80053; 81001; 83605; 84484; 85025; 85610; 85730; 87040; 87081; 87086; 93005; 96365; 96366; G0378; J0696; J1642